=== PATIENT | male | born 1980 | race Two or more races ===

== ENCOUNTER 2023-05-30 09:27 | Emergency (ER) | payer OTHER ==
[~2023-05-30] VITALS: Ht 180.3 cm; Wt 87.1 kg
[2023-05-30] MEDS ORDERED: DAILY VITE1 EAC1 (09:49)
[2023-05-30 11:04] LABS: URINE APPEARANCE Clear; URINE BILIRRUBIN Negative (NEGATIVE); URINE BLOOD Large; URINE COLOR Yellow; URINE GLUCOSE Negative (NEGATIVE); URINE LEUKOCYTE Large; URINE NITRATE Negative; URINE PROTEIN Trace (NEGATIVE); URINE UROBILINOGEN 0.2 E.U./dl
[2023-05-30 11:05] LABS: URINE BACTERIA 196.5 uL (0.0-1933); URINE RBC 933.6 uL (0.0-20.8); URINE WBC 1162.3 uL (0.0-23.2)
[2023-05-30 11:06] LABS: HEMATOCRIT 45.2 % (39.0-48.0); HEMOGLOBIN 15.8 g/dL (13-16.00); MEAN CELL VOLUME 82.7 fL (80.0-100.00); MEAN CORPUSCULAR HEMOGLOBIN 28.9 pg (27.00-32.0); PLATELET COUNT 263 K/uL (150-450); RED BLOOD COUNT 5.46 M/uL (4.00-6.00); RED CELL DISTRIBUTION WIDTH 13.1 % (11.5-14.5)
[2023-05-30 11:11] LABS: URINE EPITHELIAL CELLS 0.4 uL (0.0-38.8)
[2023-05-30 11:39] LABS: CALCIUM 9.5 mg/dL (8.5-10.1); CREATININE SERUM 0.89 mg/dL (0.70-1.30); GFR 92.44; POTASSIUM 3.77 mEq/L (3.5-5.1)
== END 2023-05-30 13:01 | disposition home or self-care (01) ==
LOC: ER 09:27
PROVIDERS: General Practice
DX: R30.0 Dysuria (principal); N23 Unspecified renal colic